=== PATIENT | male | born 1950 ===

== ENCOUNTER → 2025-08-02 01:24 | Outpatient (CLI) | payer MEDICARE, SELFPAY ==
--- NOTE | 2025-08-02 | DI.DEXA_ITS ---
Exam(s) XR DEXA BONE DENSITY W/WO ABBIE EXAM: XR DEXA BONE DENSITY W/WO ABBIE CLINICAL HISTORY: HALFWAY SYSTEMIC STEROIDS USE Z79.52 TECHNIQUE: [employer] densitometer analysis of left hip, lumbar spine and left forearm. Lateral survey image of the thoracic and lumbar spine. COMPARISON: No exams were available for comparison FINDINGS: Lateral view of the thoracic and lumbar spine shows no evidence of compression fractures. Bone mineral density measurements of the lumbar spine correspond to a total T- score of -2.2, in the osteopenic range Bone mineral density measurements of the left hip correspond to a total T-score of -1.8. The femoral neck T-score is -2.8, in the osteoporotic range. Theleft forearm bone mineral density measurements correspond to a T-score of the distal 3rd of -2.3, in the osteopenic range. IMPRESSION: Osteopenia of the spine and forearm. Osteoporosis of the hip.
== END ==
PROVIDERS: PCP Family Medicine; Visit Provider Family Medicine
DX: Z79.52 Long term (current) use of systemic steroids (principal); M85.88 Other specified disorders of bone density and structure, other site; M81.0 Age-related osteoporosis without current pathological fracture
CPT/HCPCS: 77080